=== PATIENT | female | born 2000 ===

== ENCOUNTER 2020-02-20 14:43 | Outpatient (CLI) | payer BC ==
--- NOTE | 2020-02-20 15:35 | ULT ---
THYROID ULTRASOUND: HISTORY: Neck mass. COMPARISON: None. FINDINGS: The thyroid isthmus measures 0.35 cm. The left thyroid lobe measures 1.2 x 1.2 x 3.6 cm. The right thyroid lobe measures 2.6 x 1.9 x 4.6 cm. Thyroid Nodules: There is a complex solid cystic nodule occupying the majority of the right thyroid lobe measuring 3.7 x 1.8 x 2.2 cm. IMPRESSION: Complex solid and cystic nodule occupying the majority of the right thyroid lobe. TIRADS level TR4, moderately suspicious. Fine needle aspiration is recommended. POS: [facility]
== END 2020-02-20 14:44 | disposition home or self-care (01) ==
LOC: SCSULT 14:43
PROVIDERS: ATTEND Family Medicine
DX: R22.1 Localized swelling, mass and lump, neck (principal); E04.1 Nontoxic single thyroid nodule
CPT/HCPCS: 76536